=== PATIENT | female | born 1950 | race Asian ===

== ENCOUNTER 2024-12-17 11:14 | Outpatient (REF) | payer OTHER, SELFPAY ==
--- NOTE | ~2024-12-17 | XR_ITS ---
EXAMINATION: X-ray lumbar spine. CLINICAL INFORMATION: Spondylosis with radiculopathy, lumbar region. TECHNIQUE: AP oblique and lateral views.. COMPARISON: None FINDINGS: Multilevel endplate sclerosis and marginal osteophyte formation throughout the axial skeleton pronounced at L4-5 and L5-S1. Percent volume loss likely old compression deformity at multiple levels of the lumbar spine. No acute cortical disruption. No gross malalignment. Osteopenia versus the process. 15 mm calcification overlapping the left kidney shadow. 1.5 mm calcification overlapping the right kidney shadow. XR/XR lumbar spine 4V min IMPRESSION: Multilevel thoracolumbar spondylosis. Old superior endplate compression deformities representing 20% volume loss more pronounced at L3 and L4. Osteopenia versus osteoporosis. Probable Bilateral nephrolithiasis. Electronically signed by: Sammy Brunner MD 12/17/2024 12:52 PM EDT
== END 2024-12-17 11:15 | disposition home or self-care (01) ==
LOC: HO.XRAY 11:14
PROVIDERS: PCP Internal Medicine; Referring Provider Nurse Practitioner; Visit Provider Anesthesiology
DX: M47.27 Other spondylosis with radiculopathy, lumbosacral region (principal); M96.1 Postlaminectomy syndrome, not elsewhere classified; G89.4 Chronic pain syndrome; M54.50 Low back pain, unspecified; Z79.1 Long term (current) use of non-steroidal anti-inflammatories (NSAID); Z79.899 Other long term (current) drug therapy
CPT/HCPCS: 72110; 99202

== ENCOUNTER 2024-12-17 11:14 | Outpatient (AMB) | payer OTHER, SELFPAY ==
[2024-12-17 11:18] VITALS: BP 141/67; PULSE 84; RESP 18; O2SAT 96; BMI 25.0
--- NOTE | 2024-12-17 11:18 | A.OFFVIS_ITS ---
Vital Signs 12/17/24 11:18 Height 5 ft Weight 128 lb BMI 25.0 BP 141/67 H Blood Pressure Location Lt brachial Position Sitting Respiration 18 Pulse 84 Pulse Source Pulse Oximeter Pulse Oximetry (%) 96 Oxygen Delivery Method Room Air Intake Visit Reasons: Numbness and tingling on extremities both sides Electrical Controls Technician Required: Yes Electrical Controls Technician Name: family Allergies No Known Allergies Allergy (Verified 12/17/24 11:19) HPI Comments Details: Ana Lilia is very pleasant Afghan speaking 74 years old female, who is today in my office with complains on lower back pain. She is suffering from lower back pain for long period of time. She was a subject of decompression L4-5 and L3-L4 surgery by Dr. Eloisa Verdugo. She reported that 3 years after surgery her pain remain better. She reported a fall 1-1/2 year after the surgery. However she reported that after this lucid interval her pain started to go back. She reports today in my office of pain in the lower back 01/03 to 02/03. She reports pain with radiation into bilateral lower extremities. She reports difficulty walking. She reports limited activities of daily living. She reports coughing and sneezing aggravate her pain. Most severe pain she feels with standing and walking. She was examined recently by Dr. Eloisa Verdugo office I and no surgery was recommended. I was asking patient to go for a 2nd opinion consult however patient said that she would not accept any surgery at this time. She reports that heating pads alleviate her pain. Worse that she applies eucalyptus applications at her lower back and this helps her pain. She was prescribed gabapentin and she is taking it 3 times a day. She reports that gabapentin helps her pain however decrease her appetite and worsens her digestion. She had physical therapy in [place] end of September this year and she like this a lot. She reports good improvement while she was doing physical therapy. However now she reports that effect of the physical therapy is fading of. She is trying home exercise program but it is not as effective as physical therapy. She tried NSAIDs for her pain without improvement. She tried applications of lidocaine cream which helps her pain minimally. She is interested in starting acupuncture with local [facility] tubular products fabricator. Past medical history is significant for depression, Past surgical history significant decompression as it was dictated as above. She denies smoking cigarettes drinking alcohol or using recreational drugs. Review of Systems Const All systems reviewed & are unremarkable except as noted in HPI and below ENT Reports Normal hearing present Neuro Reports Normal hearing present, Denies Abnormal speech present, Denies confusion and Denies Sensory deficit (Neuro) Psych Denies confusion Physical Exam Vital Signs: Last Vital Signs Pulse 84 12/17/24 11:18 Resp 18 12/17/24 11:18 BP 141/67 H 12/17/24 11:18 Pulse Ox 96 12/17/24 11:18 Oxygen Delivery Method Room Air 12/17/24 11:18 BMI result Body Mass Index 25.0 Const General: no acute distress; No confusion Orientation/consciousness: patient oriented x3 and No confusion Eyes General: appearance normal, both eyes and all related structures Pupils: Equal, round and reactive pupils present EOM: EOMs intact bilaterally Neck Neck: Yes full ROM Chest Chest palpation & inspection: normal inspection of the chest Resp Effort & Inspection: normal respiratory effort, able to speak in complete sentences, normal respiratory pattern, no audible wheezes and no cough Cardio Jugular venous distension: no JVD GI Inspection: Yes normal to inspection Back/Spine/Pelvis Other: Able to stand on bilateral tiptoes and bilateral heels without difficulty. Able to lift 1st toe in separation for them from the rest of the toes bilaterally. This demonstrates normal strength of bilateral lower extremities. Reports intermittent numbness in bilateral lower extremities. Loading test is positive bilaterally. Flexing forward and flexing backwards both aggravate her pain. There is severe tenderness on palpation in projection of the midline lumbar spine. Valsalva maneuvers aggravate her pain. SLR is positive bilaterally. Lasegue test is positive bilaterally. Neuro General: patient oriented x3, gait normal and No confusion Cranial nerves: Yes CN's II-XII intact bilaterally, Yes Equal, round and reactive pupils present, Yes Normal hearing present and Yes Ability to bilaterally elevate shoulders present Speech: No Abnormal speech present Gait exam (Neuro): Normal gait present Motor exam (neuro): 5/5 motor strength present throughout Sensory Exam: No Sensory deficit (Neuro) Extrem General: No pedal edema Psych Speech and movement: Normal speech and movement present Affect: normal affect Attitude: cooperative Thought process: Normal thought process present Thought content: Normal thought content present Insight: Good insight present (Psych) Judgement: Good judgement present (Psych) Assessment & Plan Assessment & Plan (1) Postlaminectomy syndrome of lumbar region: Code(s): M96.1 - Postlaminectomy syndrome, not elsewhere classified Category: Medical (2) Spondylosis of lumbar region without myelopathy or radiculopathy: Code(s): M47.816 - Spondylosis without myelopathy or radiculopathy, lumbar region Category: Medical (3) Chronic pain syndrome: Code(s): G89.4 - Chronic pain syndrome Category: Medical Plan On physical exam most prominent features point out to spondylosis of the lumbar spine and radiculopathy of lumbar spine. I offered this patient to go for x-ray of the lumbar spine today. I also will schedule her for diagnostic medial branch block L3, L4, dorsal ramus L5. I will evaluate this results of the injections, I will be able to offer this patient sprint PNS or radiofrequency ablation if diagnostic medial branch blocks will be positive for pain related to the lumbar spine. Transforaminal epidural steroid injections could be considered if medial branch block will not be working for this patient. To perform transforaminal epidural steroid injections I would need her to go for the fresh MRI of the lumbar spine. Orders: Orders XR lumbar spine 4V min Today M47.27 - Other spondylosis with radiculopathy, lumbosacral region, M96.1 - Postlaminectomy syndrome, not elsewhere classified Patient Instructions: I here by testify that I spent 45 minutes in conversation with this patient as well as planning her care and organizing this note. Patient's granddaughter was with her today helping us to maintain this conversation in Afghan. Coding Level of Care Code New Pt Level 4 (80271) Diagnoses Postlaminectomy syndrome of lumbar region M96.1 Spondylosis of lumbar region without myelopathy or radiculopathy M47.816 Chronic pain syndrome G89.4
--- OUTSIDE RECORDS SUMMARY | 2024-12-17 12:09 | XMS_ITS | Clinical Summary ---
Author Organization [address] [place] [address] Address [address] [place] [address] Phone Care Team Providers Care Marketing Instructor Name Role Phone Neena Lombardi MD Primary Care Provider Allergies Active Allergy Reactions Criticality Noted Date Comments Pollen Extracts 07/26/2020 Medications walker (Ultra-Light Rollator) misc 1 Each by Does not apply route daily. 02/25/20 24 Active nutritional drink (Ensure Active Heart Health) liquid Take 1 Can by mouth 2 times daily. 08/24/19 23 Active nutritional drink (Ensure) liquid Take 1 Bottle by mouth 2 times daily. 07/12/19 24 Active carboxymethylc ellulose (REFRESH PLUS) 0.5 % ophthalmic solution INSTILL 1 DROP IN EACH EYE 4 (FOUR) TIMES DAILY 03/20/20 24 Active clobetasoL (TEMOVATE) 0.05 % cream Apply locally twice a day 08/24/19 23 Active cycloSPORINE (Restasis MultiDose) 0.05 % drops INSTILL 1 DROP INTO BOTH EYES TWICE A DAY 12/27/19 20 Active diphenhydrAMIN E (BENADRYL) 25 mg tablet TAKE ONE TABLET BY MOUTH DAILY AT BEDTIME NEEDED FOR SLEEP 03/02/20 21 Active ketotifen (ZADITOR) 0.025 % ophthalmic solution INSTILL 1 DROP IN EACH EYE two (2) times a day NEEDED 01/26/20 Active ketotifen (Eye Itch Relief) 0.025 % ophthalmic solution INSTILL 1 DROP IN EACH EYE two (2) times a day NEEDED 04/29/20 Active peg 400-hypromello se-glycerin 1-0.2-0.2 % drops INSTILL 1 DROP IN EACH EYE 4 (FOUR) TIMES DAILY 12/28/19 Active polyvinyl alcohol (ARTIFICIAL TEARS) 1.4 % ophthalmic solution Place 1 Drop into both eyes daily as needed for Other (..). 08/24/19 Active fluorometholon e (FML) 0.1 % ophthalmic suspension INSTILL 1 DROP IN EACH EYE two (2) times a day 03/19/20 Active hydroCHLOROthi azide 12.5 mg tablet Take 1 Tablet by mouth daily. 03/23/20 24 Active ketorolac (ACULAR) 0.5 % ophthalmic solution Place 1 Drop into both eyes 2 times daily as needed for Other (..). 08/24/19 Active lidocaine HCL 4 % cream APPLY LOCALLY TWICE A DAY 10/28/19 Active losartan (COZAAR) 50 mg tablet Take 1 Tablet by mouth daily. 03/23/20 Active neomycin-polym yxin-dexametha methasone (POLYDEX) 3.5 mg/g-10,000 unit/g-0.1 % ointment apply 1 Applicator to the eye daily. Active white petrolatum-min eral oiL (Lubricant Eye) 57.3-42.5 % ointment APPLY ointment IN EACH EYE EVERY NIGHT AT BEDTIME 03/20/20 Active senna-docusate (PERICOLACE) 8.6-50 mg per tablet TAKE 1 TABLET two (2) times a day NEEDED FOR CONSTIPATION 01/20/20 Active simvastatin (ZOCOR) 10 mg tablet Take 1 Tablet by mouth at bedtime. 03/23/20 24 Active loratadine (CLARITIN) 10 mg tablet Take 1 tablet (10 mg total) by mouth 1 (one) time each day. 30 tablet 5 04/28/20 24 Active calcium carbonate-brionna min D 600 mg-10 mcg (400 unit) per tablet Take 1 tablet by mouth 2 (two) times a day. 60 tablet 11 07/28/19 25 Active traMADoL (ULTRAM) 50 mg tablet Take 1 tablet (50 mg total) by mouth 2 (two) times a day if needed for severe pain. Max Daily Amount: 100 mg 56 tablet 4 08/19/19 25 Active memantine (NAMENDA) 5 mg tabletIndicati ons:Unspecifie d dementia, unspecified severity, without behavioral disturbance, psychotic disturbance, mood disturbance, and anxiety (CMS/HCC V24, CMS/HCC V28) Take 1 tablet (5 mg total) by mouth 2 (two) times a day. 60 tablet 4 09/01/19 25 Active triamcinolone (KENALOG) 0.1 % cream Apply topically 2 (two) times a day. 30 g 4 09/01/19 25 Active meloxicam (MOBIC) 7.5 mg tablet TAKE 1 TABLET ONCE DAILY 30 tablet 09/01/19 25 Active gabapentin (NEURONTIN) 400 mg capsuleIndicat ions:Numbness and tingling of upper and lower extremities of both sides Take 1 capsule (400 mg total) by mouth 3 (three) times a day. 90 capsule 4 10/08/19 25 Active omeprazole (PriLOSEC) [address] capsuleIndicat ions:Gastroeso phageal reflux disease, unspecified whether esophagitis present Take 1 capsule (20 mg total) by mouth 1 (one) time each day. Do not crush or chew. 90 each 3 10/08/19 25 Active mometasone (ELOCON) 0.1 % creamIndicatio ns:Rash and other nonspecific skin eruption Apply thin layer to affected area BID for 2 weeks then stop. Avoid face and groin. 30 g 10/08/19 25 Active DULoxetine (CYMBALTA) [address] capsuleIndicat ions:Numbness and tingling of upper and lower extremities of both sides Take 1 capsule (20 mg total) by mouth at bedtime. Do not crush or chew. 10/16/19 25 025 Active meclizine (ANTIVERT) 12.5 mg tablet Take 1 tablet (12.5 mg total) by mouth 3 (three) times a day if needed for dizziness. 60 tablet 4 11/21/19 25 Active hydrocortisone 2.5 % cream Apply topically 2 (two) times a day. 60 g 5 11/27/19 25 Active hydrocortisone 2.5 % cream APPLY TO THE AFFECTED AREA ON SKIN two (2) times a day 10/29/19 24 025 Discontinued meclizine (ANTIVERT) 12.5 mg tablet Take 1 tablet (12.5 mg total) by mouth 2 (two) times a day. 60 tablet 4 04/28/20 24 025 Discontinued Active Problems Problem Noted Date Diagnosed Date Weakness of right leg 11/19/2024 Low back pain 11/19/2024 Leg pain 11/19/2024 Extremity numbness 11/19/2024 Carpal tunnel syndrome of left wrist 05/31/2023 Overview (04/03/2024): Last Assessment & Plan: Ms. Connors is about 3 weeks s/p left carpal tunnel release. Her hand feels better. She gets a little discomfort with pressure/palpation of the spot were the distal palmar suture was retained. Dr. Robles came in to take a look at the hand. She prepped it with some alcohol wipes and then was able to remove the stitch. The skin is healing nicely. She has good opposition strength with the APB. Arthritis 02/12/2023 Bilateral hand numbness 02/12/2023 Overview (04/03/2024): Last Assessment & Plan: Ms. Connors is scheduled for the upper extremity EMG/NCS on 04/09/2023 and I will follow-up with her and her daughter once the results are available. Tinel's test was negative today but she does report bilateral hand numbness. I reviewed the details, risks, benefits and anticipated postoperative course of a carpal tunnel release but we will make that decision once she has had the EMG. Cervical spondylosis 02/12/2023 Overview (04/03/2024): Last Assessment & Plan: Patient has also been seen in the office in the past for neck pain, offered C5-6 ACDF. On today's visit she denies any significant neck pain, although mentioned taking the tramadol for her low back pain does seem to help her neck as well. They are not describing any jumpy legs at rest, dropping things frequently, dexterity issues. She has residual numbness tingling in the left 3 digits, feels symptoms somewhat improved after left carpal tunnel release, but has numbness nighttime >daytime. Patient went to [facility] emergency department 03/06/2024 for right facial twitching that started 2 days prior, they also mention twitching in the right leg for a couple months. No significant vision change, change in speech or swallow, worsening balance or coordination, headache. In the ED she had Head CT, CTA of the head and neck that did not show any sign of stroke, aneurysm, large vessel stenotic lesions, dural sinus thrombosis. She was noted to have atrophy of the brain, chronic microangiopathic change in the supratentorial white matter. At this time patient states her main issue is her low back and legs with walking, does not seem to be bothered much with neck pain. She does have acute onset right facial twitching, would like referral to neurology, ED notes mention possibly checking brain MRI. I discussed her case with Dr. Robles, first we will check brain MRI and if needed will refer her to neurology. All questions answered. They will call with any worsening symptoms, questions or concerns. Lumbar spondylosis 02/12/2023 Overview (04/03/2024): Last Assessment & Plan: Patient is s/p L3-4, L4-[address] Robles. She came in the office about a year ago complaining of low back pain, numbness in both legs left >right, with walking had to take breaks. She follows up today describing low back pain, bilateral leg pain and numbness right >left. She could not be specific to a dermatome, states it involves the whole leg , has been worse the last few months. Her daughter states when they are walking she will have to stop as though her legs have locked up on her, she gets pain and spasms in the legs. She does tend to hunch forward when her back is bothering her walking. She has been using a cane for about a year, low back pain worse with walking. She tried gabapentin which did not help, now is using tramadol once a day to manage her back pain. Patient had MRI lumbar spine at [facility] [place]/18/2023 that showed some central stenosis at L3-4, bilateral neuroforaminal narrowing at L3-4 and L4-5. I reviewed the lumbar MRI with Dr. Robles last year, she was not recommending any surgical intervention at that time in the lumbar spine. Patient will need updated MRI lumbar spine since her symptoms have been worsening especially the last couple months. She can follow- up in the office after the MRI is completed. I also gave patient prescription for physical therapy to see if that helps with some of her low back and SI joint pain. All questions answered. Patient's daughter interpreted and [place]. Puncture wound with foreign body of right index finger without damage to nail, initial encounter 09/28/2022 Open cat bite of hand 09/26/2022 Hypertension 11/20/2017 Assessment & Plan (10/07/2024 4:56 PM EDT): Hyperlipidemia 10/30/2017 Assessment & Plan (10/07/2024 4:56 PM EDT): Osteopenia 04/17/2017 Assessment & Plan (10/07/2024 4:56 PM EDT): Dementia ([facility] V24, [facility] V28) 03/15/2017 Assessment & Plan (10/07/2024 4:56 PM EDT): Allergic rhinitis 10/09/2016 GERD (gastroesophageal reflux disease) 6 Assessment & Plan (10/07/2024 3:34 PM EDT): Orders: omeprazole (PriLOSEC) [address] capsule; Take 1 capsule (20 mg total) by mouth 1 (one) time each day. Do not crush or chew. Encounters Date Type Department Care Team Description 11/18/2024 Telephone Internal Medicine [address] [phone] Neena Lombardi MD Provider form 10/15/2024 Telephone Internal Medicine [address] [phone] Neena Lombardi MD Medication Reaction 10/07/2024 3:00 PM EDT Office Visit Internal Medicine [address] [phone] Marbin Mooney NP Routine general medical examination at a health care facility (Primary Dx); Screening for ischemic heart disease; Screening for diabetes mellitus; Vitamin B12 deficiency; Vitamin D deficiency; Chronic kidney disease, unspecified CKD stage; Numbness and tingling of upper and lower extremities of both sides; LFT elevation; Primary hypertension; Hyperlipidemia, unspecified hyperlipidemia type; Mild dementia, unspecified dementia type, unspecified whether behavioral, psychotic, or mood disturbance or anxiety ([facility] V24, [facility] V28); Osteopenia, unspecified location; Osteoporosis screening; Gastroesophageal reflux disease, unspecified whether esophagitis present; Rash and other nonspecific skin eruption; Chronic pain of both knees; Full code status from Last 3 Months Immunizations Name Administration Dates Next Due Influenza trivalent, 0.5mL ( Fluad) 65yo and older 02/08/2021,02/12/2020,03/04/2019,02/24,02/25/2016,03/05/2015 Influenza trivalent, 0.5mL, preservative free (Fluarix; FluLaval; Fluzone) ages 6mo and older (Afluria) 3 years and older 03/14/2022,03/28/2014,03/04/2011 Pneumococcal conjugate 13 va lent (Prevnar 13, PCV13) 2mo and older 03/27/2016 Pneumococcal polysaccharide 23 valent (Pneumovax 23) 2yo and older 08/17/2014 Surgical History Surgery Date Site/Laterality Comments BACK SURGERY 06/12/2018 PROCEDURE: HISTORICAL BACK SURGERY; COMMENT: L3-4, L4-5 decompression, Dr. Robles UPPER GASTROINTESTINAL ENDOSCOPY 02/11/2020 PROCEDURE: UPPER GI ENDOSCOPY/EXAM; COMMENT: negative, biopsy pending OTHER SURGICAL HISTORY PROCEDURE: HISTORY OTHER; COMMENT: Patient's family states she had fluid on her kidney, in [place] there was a procedure to drain it, supposedly she currently has only 1 working kidney APPENDECTOMY PROCEDURE: HISTORICAL APPENDECTOMY OTHER SURGICAL HISTORY PROCEDURE: HISTORY OTHER; COMMENT: Left leg procedure Medical History Medical History Date Comments Allergic rhinitis 10/09/2016 DX:Allergic rh initis Dementia ([facility] V24, [facility] V28) 03/15/2017 DX:Dementia ([facility]) GERD (gastroesophageal reflux disease) 6 DX:GERD (gastroesophageal reflux disease) History of renal cell cancer 06/21/2015 DX: History of renal cell cancer Hyperlipidemia 10/30/2017 DX:Hyperlipidemi a Hypertension 11/20/2017 DX:Hypertension Osteopenia 04/17/2017 DX:Osteopenia Elevated liver enzymes DX:Elevat ed liver enzymes Hepatitis B antibody positive DX :Hepatitis B antibody positive Fatty liver DX:Fatty liver Social History Tobacco Use Types Packs/Day Years Used Date Smoking Tobacco: Never Smokeless Tobacco: Never Alcohol Use Standard Drinks/Week Comments No 0 (1 standard drink = 0.6 oz pur e alcohol) Comments Unknown Sex and Gender Information Value Date Recorded Sex Assigned at Not on file Legal Sex Female 8:39 AM EST Gender Identity Not on file Sexual Orientation Not on file Obstetrics History Last Filed Vital Signs Vital Sign Reading Time Taken Comments Blood Pressure 140/80 03/23/2024 8:44 AM EDT Pulse 82 03/23/2024 8:44 AM EDT Temperature - - Respiratory Rate - - Oxygen Saturation - - Inhaled Oxygen Concentration - - Weight 60.3 kg (133 lb) 04/30/2024 11:14 AM EST Height 152.4 cm (5') 04/30/2024 11:14 AM EST Body Mass Index 25.97 04/30/2024 11:14 AM EST Plan of Treatment Upcoming Encounters Date Type Department Care Team (Late st Contact Info) Description 04/12/2025 11:00 AM EST Office Visit Internal Medicine - [place] [address] [facility] [address] [place] [phone] Neena Lombardi MD [address] [facility] [address] [place] [phone] Health Maintenance Due Date Last Done Comments DTaP,Tdap,and Td Vaccines (1 - Tdap) 1968 Hepatitis A Vaccines (1 of 2 - Risk 2-dose series) 1968 Zoster Vaccines (1 of 2) 1968 Hepatitis B Vaccines (1 of 3 - Risk 3-dose series) 2009 Colorectal Cancer Screening: Colonoscopy 04/29/2022 Osteoporosis Screening (Bone Density Screening) 04/29/2022 Social Influencers of Health Screening 04/29/2022 COVID-19 Vaccine ( season) 2024 03/27/2021, 09/01/2020, 08/11/2020 RSV Immunization Adult Patients (1 - 1-dose 75+ series) 2024 Depression Screening 05/27/2024 Influenza Vaccine (#1) 2025 , 02/08/2021, 02/12/2020, Additional history exists Falls Risk Assessment 10/07/2025 10/07/2024 Medicare Annual Wellness Visit 10/07/2025 10/07/2024 Hypertension/CHF/CAD Annual BMP Blood Test 10/09/2025 10/09/2024, 04/13/2024, 03/23/2024, Additional history exists Cholesterol Screening (Lipid Panel) 10/09/2029 10/09/2024, 03/23/2024, 03/23/2024, Additional history exists Pneumococcal Vaccine: 50+ Years Completed 03/27/2016, 08/17/2014 Hepatitis C Screening Completed 05/15/2023 Breast Cancer Screening Discontinued 03/12/20, 03/12/2024, 09/04/2021, Additional history exists HIB Vaccines Aged Out No longer eligi ble based on patient's age to complete this topic HPV Vaccines Aged Out No longer eligi ble based on patient's age to complete this topic IPV Vaccines Aged Out No longer eligi ble based on patient's age to complete this topic MMR Vaccines Aged Out No longer eligi ble based on patient's age to complete this topic Meningococcal ACWY Vaccine Aged Out N o longer eligible based on patient's age to complete this topic Meningococcal B Vaccine Aged Out No l onger eligible based on patient's age to complete this topic RSV Immunization Patients Under 20 months Aged Out No longer eligible based on patient's age to complete this topic Varicella Vaccines Aged Out No longer eligible based on patient's age to complete this topic Procedures Procedure Name Priority Date/Time Associated Diagnosis Comments LIPID PANEL WITH REFLEX TO DIRECT LDL Routine 10/09/2024 9:32 AM EDT Screening for ischemic heart disease COMPLETE BLOOD COUNT Routine 10/09/2024 9:32 AM EDT Routine general medical examination at a health care facility COMPREHENSIVE METABOLIC PANEL Routine 10/09/2024 9:32 AM EDT Routine general medical examination at a health care facility HEMOGLOBIN A1C Routine 10/09/2024 9:32 AM EDT Screening for diabetes mellitus MAGNESIUM Routine 10/09/2024 9:32 AM EDT Routine general medical examination at a health care facility THYROID STIMULATING HORMONE Routine 10/09/2024 9:32 AM EDT Routine general medical examination at a health care facility VITAMIN B12 Routine 10/09/2024 9:32 AM EDT Vitamin B12 deficiency VITAMIN D 25 HYDROXY Routine 10/09/2024 9:32 AM EDT Vitamin D deficiency RADHA SCREENING DIGITAL Routine 03/12/2024 12:55 PM EDT Encounter for screening mammogram for malignant neoplasm of breast HEPATITIS C SCREENING Routine 05/15/2023 from Last 3 Months or Most Recently Relevant to Health Maintenance Results * (ABNORMAL) Lipid panel with reflex to direct LDL (10/09/2024 9:32 AM EDT) Cholesterol 183 0 - 200 mg/dL LAB CHEMISTRY METHOD 10/09/2024 3:46 PM EDT [facility] Triglycerides 155(H) 0 - 150 mg/dL LAB CHEMISTRY METHOD 10/09/2024 3:46 PM EDT [facility] HDL 56 >=40 mg/dL LAB CHEMISTRY METHOD 10/09/2024 3:46 PM EDT [facility] LDL Calculated 96 0 - 100 mg/dL LAB CHEMISTRY METHOD 10/09/2024 3:46 PM EDT [facility] VLDL Cholesterol Quan 31 mg/dL LAB CHEMISTRY METHOD 10/09/2024 3:46 PM EDT [facility] Non HDL Chol. (LDL+VLDL) 127 <145 mg/dL LAB CHEMISTRY METHOD 10/09/2024 3:46 PM EDT [facility] Chol/HDL Ratio 3.3 0.0 - 4.4 LAB CHEMISTRY METHOD 10/09/2024 3:46 PM EDT [facility] Blood Venous blood specimen / Unknown Venipuncture / Unknown 10/09/2024 9:32 AM EDT 10/09/2024 9:32 AM EDT [facility] BLOOD ORDERABLES Final Resul t Performing Organization Address City/[facility]/ZIP Co de Phone Number [facility] [address] [place] [address], [place] [phone] * Vitamin D 25 hydroxy (10/09/2024 9:32 AM EDT) Vit D, 25-Hydroxy 33.9 30.0 - 80.0 ng/mL LAB CHEMISTRY METHOD 10/09/2024 4:19 PM EDT [facility] Blood Venous blood specimen / Unknown Venipuncture / Unknown 10/09/2024 9:32 AM EDT 10/09/2024 9:32 AM EDT Marbin Mooney LAB BLOOD ORDERABLES Final Resul t Performing Organization Address [facility]/ZIP Co de Phone Number [facility] [address] [place] [address], [place] [phone] * (ABNORMAL) Complete blood count (10/09/2024 9:32 AM EDT) WBC 6.6 4.8 - 10.8 K/[facility] LAB HEMETOLOGY METHOD 10/09/2024 2:44 PM EDT [facility] RBC 4.70 3.80 - 4.80 M/[facility] LAB HEMETOLOGY METHOD 10/09/2024 2:44 PM EDT [facility] Hemoglobin 13.9 11.5 - 16.0 g/dL LAB HEMETOLOGY METHOD 10/09/2024 2:44 PM EDT [facility] Hematocrit 44.0 35.0 - 47.0 % LAB HEMETOLOGY METHOD 10/09/2024 2:44 PM EDT [facility] MCV 93.2 79.0 - 98.0 FL LAB HEMETOLOGY METHOD 10/09/2024 2:44 PM EDT [facility] MCH 29.4 27.0 - 32.0 pcg LAB HEMETOLOGY METHOD 10/09/2024 2:44 PM EDT [facility] MCHC 31.6(L) 32.0 - 37.0 g/dL LAB HEMETOLOGY METHOD 10/09/2024 2:44 PM T [facility] RDW 12.9 11.0 - 15.0 % LAB HEMETOLOGY METHOD 10/09/2024 2:44 PM EDT [facility] Platelets 224 130 - 400 K/mcL LAB HEMETOLOGY METHOD 10/09/2024 2:44 PM EDT [facility] MPV 11.7(H) 7.0 - 11.0 FL LAB HEMETOLOGY METHOD 10/09/2024 2:44 PM T [facility] NRBC 0.0 <1.0 % LAB HEMETOLOGY METHOD 10/09/2024 2:44 PM EDT [facility] NRBC Absolute 0.00 <0.10 K/mcL LAB HEMETOLOGY METHOD 10/09/2024 2:44 PM T [facility] Blood Venous blood specimen / Unknown Venipuncture / Unknown 10/09/2024 9:32 AM EDT 10/09/2024 9:32 AM EDT us Marbin Mooney NP LAB BLOOD ORDERABLES Final Resul t [facility] [address] [place] [address], [place] [phone] * Thyroid stimulating hormone (10/09/2024 9:32 AM EDT) [facility] TSH 2.01 0.40 - 4.00 mcIU/mL LAB CHEMISTRY METHOD 10/09/2024 4:19 PM EDT [facility] Blood Venous blood specimen / Unknown Venipuncture / Unknown 10/09/2024 9:32 AM EDT 10/09/2024 9:32 AM EDT Nikarlee Mooney DIRECTOR CHEMISTRY LAB BLOOD ORDERABLES Final Resul t Performing Organization Address [facility]/ZIP Co de Phone Number [facility] [address] [place] [address], [place] [phone] * Magnesium (10/09/2024 9:32 AM EDT) [facility] Magnesium 2.1 1.9 - 2.6 mg/dL LAB CHEMISTRY METHOD 10/09/2024 3:01 PM EDT [facility] Blood Venous blood specimen / Unknown Venipuncture / Unknown 10/09/2024 9:32 AM EDT 10/09/2024 9:32 AM EDT Marbin Mooney DIRECTOR CHEMISTRY LAB BLOOD ORDERABLES Final Resul t [facility] [address] [place] [address], [place] [phone] * Hemoglobin A1c (10/09/2024 9:32 AM EDT) [facility] Hemoglobin A1C 6.4 <6.5 % LAB CHEMISTRY METHOD 10/09/2024 8:41 PM EDT [facility] Mean Bld Glu Estim. 137 mg/dL LAB CHEMISTRY METHOD 10/09/2024 8:41 PM EDT [facility] Blood Venous blood specimen / Unknown Venipuncture / Unknown 10/09/2024 9:32 AM EDT 10/09/2024 9:32 AM EDT Marbin Mooney DIRECTOR CHEMISTRY LAB BLOOD ORDERABLES Final Resul t [facility] [address] [place] [address], [place] [phone] * Vitamin B12 (10/09/2024 9:32 AM EDT) Pathologist [facility] [place] Vitamin B-12 841 250 - 900 pcg/mL LAB CHEMISTRY METHOD 10/09/2024 3:46 PM EDT [facility] Blood Venous blood specimen / Unknown Venipuncture / Unknown 10/09/2024 9:32 AM EDT 10/09/2024 9:32 AM EDT us Marbin Mooney DIRECTOR CHEMISTRY LAB BLOOD ORDERABLES Final Resul t [facility] [address] [place] [address], [place] [phone] * (ABNORMAL) Comprehensive metabolic panel (10/09/2024 9:32 AM EDT) Pathologist [facility] [place] Sodium 141 133 - 145 mmol/L LAB CHEMISTRY METHOD 10/09/2024 3:46 PM EDT [facility] Potassium 4.6 3.5 - 5.5 mmol/L LAB CHEMISTRY METHOD 10/09/2024 3:46 PM EDT [facility] Chloride 106 96 - 110 mmol/L LAB CHEMISTRY METHOD 10/09/2024 3:46 PM EDT [facility] CO2 27 21 - 32 mmol/L LAB CHEMISTRY METHOD 10/09/2024 3:46 PM EDT [facility] Anion Gap 8 3 - 11 LAB CHEMISTRY METHOD 10/09/2024 3:46 PM [facility] Glucose 93 70 - 100 mg/dL LAB CHEMISTRY METHOD 10/09/2024 3:46 PM [facility] BUN 28(H) 5 - 25 mg/dL LAB CHEMISTRY METHOD 10/09/2024 3:46 PM [facility] Creatinine 1.18(H) 0.50 - 1.10 mg/dL LAB CHEMISTRY METHOD 10/09/2024 3:46 PM [facility] eGFR 48(L) >=60 mL/min/1. 73m2 LAB CHEMISTRY METHOD 10/09/2024 3:46 PM [facility] Comment:Calculation based on the Chronic Kidney Disease Epidemiology Collaboration (CKD-EPI) equation refit without adjustment for race. BUN/Creatinine Ratio 23.7 LAB CHEMISTRY METHOD 10/09/2024 3:46 PM [facility] Calcium 9.7 8.5 - 10.5 mg/dL LAB CHEMISTRY METHOD 10/09/2024 3:46 PM [facility] AST (SGOT) 44(H) 10 - 42 unit/L LAB CHEMISTRY METHOD 10/09/2024 3:46 PM [facility] ALT (SGPT) 57 10 - 60 unit/L LAB CHEMISTRY METHOD 10/09/2024 3:46 PM [facility] Alkaline Phosphatase 60 42 - 121 unit/L LAB CHEMISTRY METHOD 10/09/2024 3:46 PM [facility] Total Protein 7.9 6.0 - 8.0 g/dL LAB CHEMISTRY METHOD 10/09/2024 3:46 PM [facility] Albumin 3.8 3.2 - 5.0 g/dL LAB CHEMISTRY METHOD 10/09/2024 3:46 PM [facility] Total Bilirubin 0.5 0.0 - 1.4 mg/dL LAB CHEMISTRY METHOD 10/09/2024 3:46 PM [facility] Blood Venous blood specimen / Unknown Venipuncture / Unknown 10/09/2024 9:32 AM EDT 10/09/2024 9:32 AM EDT us Marbin Mooney TRA LAB BLOOD ORDERABLES Final Resul t [facility] [address] [place] [address], * RADHA SCREENING DIGITAL (03/12/2024 12:55 PM EDT) Anatomical Region Laterality Modality Mammography 03/12/2024 8:01 AM EDT Narrative 03/12/2024 12:55 PM EDT [facility] Diagnostic Imaging Department [address] [place] [address] Patient: DORYCHEYANNE /Age/Sex: 1950 - 73 - F Unit#: [id number] Location/Status: [facility] CLI Mnemonic/Ordering Site: [facility] Ordering Physician: NEENA LOMBARDI MD Radha Screening Digital - 03/12/24821 Report Status:Signed EXAM: SCREENING MAMMOGRAPHY, BILATERAL HISTORY: SCREENING. No additional history. COMPARISON: 09/04/2021, 08/31/2020, 06/02/2019 TECHNIQUE: Synthesized CC and MLO projections of each breast. Tomosynthesis of each breast in the CC and MLO projections. ADDITIONAL IMAGING: None Computer-aided detection was employed with the iCAD profound AI 3-D. TISSUE DENSITY: There are scattered areas of fibroglandular density. (BI-RADS category B) FINDINGS: RIGHT BREAST: No suspicious mass. No suspicious calcification. No distortion. No additional suspicious right breast findings LEFT BREAST: No suspicious mass. No suspicious calcification. No distortion. No additional suspicious left breast findings IMPRESSION: No mammographic evidence of malignancy. No suspicious interval change. A negative mammogram in the presence of a clinically suspicious palpable abnormality does not preclude the possibility of malignancy or alter the indications for biopsy. ASSESSMENT: BI-RADS 1: NEGATIVE RECOMMENDATION(S): 1: Routine screening mammogram BILATERAL in 1 year. Dictating Physician: Ashanti PRETTY BRET MD Electronically Signed by: Ashanti PRETTY BRET MD Dic Date/Time: 03/12/24 1250 Sign date/Time: 03/12/24 1255 Procedure Note Enrrique Pretty MD - 03/24/2024 [facility] Diagnostic Imaging Department [address] [place] [address] Patient: DORYCHEYANNE Barajas /Age/Sex: 1950 - 73 - F Unit#: [id number] Location/Status: [facility] CLI Mnemonic/Ordering Site: [facility] Ordering Physician: NEENA LOMBARDI MD Radha Screening Digital - 03/12/24821 Report Status:Signed EXAM: SCREENING MAMMOGRAPHY, BILATERAL HISTORY: SCREENING. No additional history. COMPARISON: 09/04/2021, 08/31/2020, 06/02/2019 TECHNIQUE: Synthesized CC and MLO projections of each breast.Tomosynthesis of each breast in the CC and MLO projections. ADDITIONAL IMAGING: None Computer-aided detection was employed with the iCAD profound AI 3-D. TISSUE DENSITY: There are scattered areas of fibroglandular density.(BI-RADS category B) FINDINGS: RIGHT BREAST: No suspicious mass. No suspicious calcification. No distortion. Noadditional suspicious right breast findings LEFT BREAST: No suspicious mass. No suspicious calcification. No distortion. Noadditional suspicious left breast findings IMPRESSION: No mammographic evidence of malignancy. No suspicious interval change. A negative mammogram in the presence of a clinically suspicious palpable abnormality does not preclude the possibility of malignancy or alter the indications for biopsy. ASSESSMENT: BI-RADS 1: NEGATIVE RECOMMENDATION(S): 1: Routine screening mammogram BILATERAL in 1 year. Dictating Physician: Ashanti PRETTY BRET MD Electronically Signed by: Ashanti PRETTY BRET MD Dic Date/Time: 03/12/24 1250 Sign date/Time: 03/12/24 1255 Neena Lombardi MD IMG BI PROCEDURES Final Result * Hepatitis C Screening (05/15/2023) Hepatitis C Screening Abstracted Historical Provider HEALTH MAINTENANCE Final Result from Last 3 Months or Most Recently Relevant to Health Maintenance Insurance [facility] [employer] MEDIC[employer] Member Subscriber Plan / Payer (Ef fective 2024-Present) Name:CHEYANNE CONNORS Relation to Subscriber:Self Name:Cheyanne Connors Payer ID:[id number] Group ID:[id number] Type:Not on file Address: [address] [facility] [place] [id number] Care Teams Marketing Instructor Relationship Specialty Start Date End Date Neena Lombardi MD [address] [place] [id number] PCP - General Internal Medicine 04/02/24
== END 2024-12-17 11:51 | disposition home or self-care (01) ==
LOC: HO.PMC 11:15
PROVIDERS: PCP Internal Medicine; Referring Provider Nurse Practitioner; Visit Provider Anesthesiology
DX: M96.1 Postlaminectomy syndrome, not elsewhere classified (principal); M47.816 Spondylosis without myelopathy or radiculopathy, lumbar region; G89.4 Chronic pain syndrome
CPT/HCPCS: 99204

== ENCOUNTER → 2024-12-17 12:12 | Outpatient (BNV) | payer OTHER, SELFPAY | PROVIDERS: PCP Internal Medicine; Referring Provider Nurse Practitioner; Visit Provider Radiology Diagnostic Radiology | DX: M47.817 Spondylosis without myelopathy or radiculopathy, lumbosacral region (principal) | CPT/HCPCS: 72110 ==